=== PATIENT | male | born 1970 | race Hispanic/Latino ===

== ENCOUNTER 2018-05-20 22:06 | Emergency (ER) | payer OTHER, BC ==
[2018-05-20 22:08] VITALS: BMI 29.8
[2018-05-20] MEDS ORDERED: Naproxen 550 mg Tab PO STA (22:19)
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
[2018-05-20 22:41] VITALS: BP 125/67; PULSE 80; RESP 20; TEMP 98; O2SAT 97
--- NOTE | 2018-05-21 08:33 | RAD ---
PROCEDURE: Radiographs of the Left Shoulder HISTORY: pain COMPARISON: Chest x-ray 03/09/17 FINDINGS: Examination of the included chest limited by marked hypoinflation. Suspect cardiomegaly, however partially imaged and likely exaggerated by technique. BONES: No acute displaced fracture. The distal clavicle and underlying ribs appear intact. JOINTS: No acute dislocation. SOFT TISSUES: Soft tissues appear unremarkable. No evidence of radiopaque foreign body. IMPRESSION: No acute displaced fracture or dislocation evident. If symptoms persist or if there is continued clinical concern, x-ray follow-up in 7-10 days should be considered. Examination of the included chest limited by marked hypoinflation. Suspect cardiomegaly, however partially imaged and likely exaggerated by technique.
== END 2018-05-20 22:45 | disposition home or self-care (01) ==
LOC: ED 22:06
DX: S43.402A Unspecified sprain of left shoulder joint, initial encounter (principal); X50.0XXA Overexertion from strenuous movement or load, initial encounter; Y92.89 Other specified places as the place of occurrence of the external cause; Y99.1 Military activity